=== PATIENT | female | born 1990 | race Caucasian/White ===

== ENCOUNTER 2023-07-13 18:17 | Emergency (ER) | payer SELFPAY ==
[~2023-07-13] VITALS: Ht 162.6 cm; Wt 91.0 kg
[2023-07-13 18:28] VITALS: BP 148/96; PULSE 85; RESP 16; TEMP 98.6; O2SAT 98
[2023-07-13] MEDS ORDERED: HYDROCODONE/ACETAMINOPHEN 5/325MG TABLET PO ONE (19:45)
[2023-07-13] MEDS ORDERED: LIDOCAINE HCL/PF 1% 10 MG/ML 5ML VIAL INFIL ONE (19:45)
[2023-07-13] MEDS ORDERED: BACITRACIN ZINC OINT UDPKT TOP ONE (19:45)
[2023-07-13] MEDS ORDERED: TETANUS, DIPHTHERIA, PERTUSSIS VAC/PF 0.5ML (>10YR OLD) IM ONE (19:45)
[2023-07-13] MEDS ORDERED: AMOXICILLIN/POTASSIUM CLAVULANATE 875/125MG TAB PO ONE (20:15)
[2023-07-13] MEDS ORDERED: BO1 TP (22:23)
[2023-07-13] MEDS ORDERED: AMOX1TAB16 MT (22:23)
[2023-07-13] MEDS ORDERED: IBUP-2029 MT (22:23)
== END 2023-07-13 23:00 | disposition home or self-care (01) ==
LOC: EDSEX 18:30 → ER 18:30
DX: S51.811A Laceration without foreign body of right forearm, initial encounter (principal); Z98.890 Other specified postprocedural states; W54.0XXA Bitten by dog, initial encounter; Y93.89 Activity, other specified; Y92.89 Other specified places as the place of occurrence of the external cause; Y99.8 Other external cause status
CPT/HCPCS: 90715; 12002; 90471; 99283; J3490; Z7610 ×2